=== PATIENT | female | born 1955 | race Caucasian/White ===

== ENCOUNTER → 2017-04-11 16:26 | Outpatient (CLI) | payer MEDICARE | END | disposition home or self-care (01) | LOC: D.MAMMO 03-28 15:00 | DX: Z12.31 Encounter for screening mammogram for malignant neoplasm of breast (principal) ==

== ENCOUNTER → 2019-04-07 12:13 | Outpatient (CLI) | payer MEDICARE | LOC: D.MAMMO 12:13 | PROVIDERS: ATTEND Family Medicine | DX: Z12.31 Encounter for screening mammogram for malignant neoplasm of breast (principal) ==

== ENCOUNTER 2020-09-19 08:22 | Day surgery (SDC) | payer MEDICARE ==
[~2020-09-19] VITALS: Ht 157.5 cm; Wt 79.1 kg
[~2020-09-19 08:22] MED LIST: ASPIRIN81 MG PO; BENZTROPINE MESY2 MG PO; DEPAKOTE250 MG PO; FENOFIBRATE134 MG PO; GABAPENTIN300 MG PO; GLUCOPHAGE1000 MG PO; KEPPRA500 MG PO; LASIX20 MG PO; LIPITOR20 MG PO; POTASSIUM CHLO10 ME1 PO; PROTONIX40 MG PO; PROZAC20 MG PO; RESTORIL15 MG PO; ZANAFLEX4 MG PO; ZYPREXA5 MG PO
[2020-09-19 09:00] LABS: BASOPHILS 0.2 % (0-2); HEMOGLOBIN 11.6 g/dL (12-16); IMMATURE GRANULOCYTES 1.3 % (0-5); LYMPHOCYTE ABS# 2.47 10x3/uL (1.18-3.74); LYMPHOCYTES 39.6 % (15-50); MCHC 32.2 g/dL (31.0-37.0); MONOCYTES 7.4 % (2-11); NEUTROPHIL ABS# 2.97 10x3/uL (1.56-6.13); NEUTROPHILS 47.5 % (40-80); PLATELET COUNT 267 10x3/uL (130-400); RBC 3.87 10x6/uL (4.00-5.40); RDW 14.1 % (11.5-14.5); WBC 6.2 10x3/uL (4.8-10.8)
[2020-09-19 09:16] LABS: CALCIUM 9.3 mg/dL (8.5-10.1); CARBON DIOXIDE 29.4 mmol/L (21.0-32.0); POTASSIUM - SERUM 4.4 mmol/L (3.5-5.1)
[2020-09-19 09:32] LABS: INR 1.13 (0.85-1.17); PROTIME 13.4 SECONDS (11.6-15.0)
[2020-09-19 09:42] VITALS: BP 110/44; Ht 157.5 cm; Wt 79.1 kg
--- NOTE | 2020-09-19 15:31 | NUR ---
1438 IV DC'ED WITH CATH INTACT. BLEEDING FROM SITE. PRESSURE APPLIED. ASSISTED WITH DRESSING. Kirill ALEXANDRA R.N. PROVIDED WITH DISCHARGE INFORMATION INCLUDING: RX: FLAGYL, MED REC, RTC. APPT., SHEET LISTING NSAIDS TO AVOID & [facility] POST ENDOSCOPY D/C INSTRUCTIONS. UNDERSTANDING VOIDED BY SON & PT. TO PRIVATE CAR PER WHEELCHAIR BY STAFF. HOME WITH SONSANDEEP. Kirill ALEXANDRA R.N.
--- NOTE | 2020-09-19 17:14 | OP ---
PATIENT NAME: GEETHA COLLINS MEDICAL RECORD: [id number] :53 LOCATION:D.OPS ADMISSION DATE: SURGEON: LUCAS BRNIK MD DATE OF OPERATION: 09/19/2020 PREOPERATIVE DIAGNOSES: History of a polyp with low-grade atypia that has been tattooed at the hepatic flexure. POSTOPERATIVE DIAGNOSES: History of a polyp with low-grade atypia that has been tattooed at the hepatic flexure with regrowth on a fold. PROCEDURE: 1. Total colonoscopy to cecum. 2. Polypectomy utilizing the argon plasma calendering machine operator. SURGEON: Lucas Brink MD EAR MACHINE OPERATOR: None. BLOOD LOSS: Minimal. ANESTHESIA: IV sedation. COMPLICATIONS: None. DESCRIPTION OF PROCEDURE: The patient was conveyed to the endoscopy suite electively on 09/19/2020. IV sedation was induced by the anesthesia staff. The patient was placed in the Rowe position. A digital rectal examination was performed. A colonoscope was inserted through the anus. It was advanced with difficulty to the cecum. I slowly withdrew the endoscope. At the hepatic flexure, I noted a tattoo. Across from the tattoo, there was regrowth of polyp on a fold. Multiple cold biopsies were obtained of the polyp. Any residual polypoid tissue was then ablated utilizing the argon plasma calendering machine operator with the right colon setting in the forced mode. There was no bleeding. The endoscope was then withdrawn under direct vision. I will see the patient in my office in 2-3 weeks. I will plan for her next surveillance colonoscopy to take place in 1 year. TRANSINT:[id number] Voice Confirmation ID: [id number] DOCUMENT ID: [id number] LUCAS BRINK MD at 1714 CC: SHAHID BENITEZ MD [id number] DICTATION DATE: 09/19/20 1311 COMMUNITY RECREATION PROGRAMMER: 09/19/20 1642 [facility] 09/19/[address] [address]
--- NOTE | 2020-09-19 17:18 | HP ---
PATIENT: GEETHA COLLINS MEDICAL RECORD: [id number] ACCOUNT: [id number] LOCATION:[facility] : 53 ADMISSION DATE: 09/19/20 PCP: SHAHID BENITEZ MD HISTORY AND PHYSICAL EXAMINATION HISTORY OF PRESENT ILLNESS: This patient is to undergo surveillance colonoscopy. The patient has had a history of a flat hepatic flexure polyp, which was tattooed. At that time, it was a tubular adenoma. I performed a polypectomy of a hepatic flexure polyp utilizing the argon plasma carburetor specialist. A pathology on this was a portion of hyperplastic polyp and a tubular adenoma with focal low-grade atypia. Due to the low-grade atypia, the patient is undergoing surveillance colonoscopy 1 year later. SOCIAL HISTORY: Nonsmoker. PAST MEDICAL AND SURGICAL HISTORY: Bronchitis, hypertension, seizures, noninsulin dependent diabetes, history of colon polyp, some dementia. REVIEW OF SYSTEMS: Negative for angina or myocardial infarction. MEDICATIONS: Reviewed. ALLERGIES: Reviewed. PHYSICAL EXAMINATION: GENERAL: The patient does not appear acutely ill. She does not appear chronically ill. VITAL SIGNS: Reviewed. EARS: External ears appear normal. EYES: Extraocular movements are intact. NECK: Trachea is midline. CHEST: No intercostal retractions. IMPRESSION: The patient has a history of a hepatic flexure flat, tattooed, tubular adenoma with low-grade atypia. PLAN: Surveillance colonoscopy. TRANSINT:[id number] Voice Confirmation ID: [id number] DOCUMENT ID: [id number] DEEPAK BRINK MD at 1718 CC: SHAHID BENITEZ MD [id number] DICTATION DATE: 09/19/20 1207 POLE CUTTER: 09/19/[address] [facility] 09/19/20 [id number] [place] [address]
== END 2020-09-19 14:51 | disposition home or self-care (01) ==
LOC: D.OPS 08:22
PROVIDERS: Anesthesiology; ATTEND Surgery
DX: Z86.010 Personal history of colon polyps (principal); I10 Essential (primary) hypertension; F03.90 Unspecified dementia, unspecified severity, without behavioral disturbance, psychotic disturbance, mood disturbance, and anxiety; F17.210 Nicotine dependence, cigarettes, uncomplicated; K58.9 Irritable bowel syndrome, unspecified; E78.5 Hyperlipidemia, unspecified; E11.49 Type 2 diabetes mellitus with other diabetic neurological complication; K21.9 Gastro-esophageal reflux disease without esophagitis